=== PATIENT | female | born 1990 | race Caucasian/White ===

== ENCOUNTER 2020-09-04 13:16 | Emergency (ER) | payer MEDICARE, OTHER ==
[2020-09-04] MEDS ORDERED: Sodium Chloride 0.9% 1000 ML 1,000 ML IV STA ×2 (14:31→16:02)
[2020-09-04] MEDS ORDERED: TORAdol 30 mg Injection IV ONE (14:31)
[2020-09-04] MEDS ORDERED: Sodium Chloride 0.9% 1000 ML 1,000 ML ONE ×2 (14:33→16:03)
[2020-09-04] MEDS ORDERED: TORAdol 30 mg Injection ONE (14:33)
[2020-09-04] MEDS ORDERED: Zofran 4 MG/2 ML VIAL IV ONE (16:01)
[2020-09-04] MEDS ORDERED: SUBLIMAZE 100 MCG/2 ML IV ONE (16:01)
[2020-09-04] MEDS ORDERED: Zofran 4 MG/2 ML VIAL ONE (16:03)
[2020-09-04] MEDS ORDERED: SUBLIMAZE 100 MCG/2 ML ONE (16:03)
[2020-09-04 16:15] VITALS: BP 108/51; PULSE 77; O2SAT 96
--- NOTE | 2020-09-04 17:43 | ERPHSYRPT ---
- History of Present Illness Historian: patient Exam Limitations: no limitations Patient Subjective Stated Complaint: Pt began having pain in her left flank approx 2 hours ago, N&V Triage Nursing Assessment: Pt was brought to the ER by her , hypotensive, rates pain 8/10, hx of kidney stones, N&V, chills and then sweats Physician History: 30 yo wf w L flank pain x 2 hours which pt states is a 10 and feels like a kidney stone. She has had N/V but denies dysuria/hematuria/fever/. Pt is currently on her period. Timing/Duration: today Activities at Onset: rest Quality: aching, sharpness Abdominal Pain Onset Location: flank (L flank) Pain Radiation: no radiation Severity of Pain-Max: severe Severity of Pain-Current: severe Modifying Factors: Improves With: nothing Associated Symptoms: nausea, vomiting, No back, No chest pain, No diaphoresis, No diarrhea, No fever/chills, No fatigue, No headache, No heartburn, No loss of appetite, No neck pain, No rash, No shortness of breath, No syncope, No weakness Previous symptoms: same symptoms as today Allergies/Adverse Reactions: bee venom protein (honey bee) Allergy (Verified 09/04/20 13:56) Penicillins Allergy (Verified 09/04/20 13:56) tomato Allergy (Verified 09/04/20 13:56) Travel Risk - International Travel Have you traveled outside of the country in past 3 weeks: No - Coronavirus Screening Are you exhibiting any of the following symptoms?: No Close contact with a COVID-19 positive Pt in past 14-21 Days: No - Vaccine Status Have you recieved a Covid-19 vaccination: Yes 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 - Vaccination Dates Date of 2cond Vaccination (if applicable): 05/2020 - Review of Systems Constitutional: No Symptoms Eyes: No Symptoms Ears, Nose, & Throat: No Symptoms Respiratory: No Symptoms Cardiac: No Symptoms Abdominal/Gastrointestinal: No Symptoms, Nausea, Vomiting Genitourinary Symptoms: No Symptoms, Flank Pain Musculoskeletal: No Symptoms Skin: No Symptoms Neurological: No Symptoms Psychological: No Symptoms Endocrine: No Symptoms Hematologic/Lymphatic: No Symptoms Immunological/Allergic: No Symptoms - Past Medical History Pertinent Past Medical History: No - Past Surgical History Past Surgical History: Yes Gastrointestinal: Cholecystectomy Other Surgical History: kidney stones removed - Social History Smoking Status: Current every day smoker Exposure to second hand smoke: Yes Drug Use: none Patient Lives Alone: No Significant Family History: no pertinent family hx - Female History Hx Last Menstrual Period: 09/02/2020 Hx Now: No - Nursing Vital Signs Nursing Vital Signs: Initial Vital Signs Temperature 96.3 F 09/04/20 13:48 Pulse Rate 68 09/04/20 13:48 Blood Pressure 85/74 09/04/20 13:48 O2 Sat by Pulse Oximetry 100 09/04/20 13:48 Pain Scale Pain Intensity 4 Mildly hypotensive - Physical Exam General Appearance: mild distress (Due to pain) Eye Exam: PERRL/EOMI, eyes nml inspection Ears, Nose, Throat Exam: normal ENT inspection, TMs normal, pharynx normal, moist mucous membranes Neck Exam: normal inspection, non-tender, supple, full range of motion, No meningismus, No mass, No Brudzinski, No Kernig's Respiratory Exam: normal breath sounds, lungs clear, airway intact Cardiovascular Exam: regular rate/rhythm, normal heart sounds, normal peripheral pulses, No murmur Gastrointestinal/Abdomen Exam: soft, normal bowel sounds, No tenderness Back Exam: normal inspection, CVA tenderness (L) Extremity Exam: normal inspection, normal range of motion Neurologic Exam: alert, oriented x 3, cooperative, physical laboratory assistant II-XII nml as tested, normal mood/affect, nml cerebellar function, sensation nml Skin Exam: normal color Lymphatic Exam: No adenopathy SpO2 Interpretation: normal SpO2: 96 O2 Delivery: Room Air - Course Nursing assessment & vital signs reviewed: Yes - CT Exams Abdomen/Pelvis CT Interpretation: Tele-radiologist Report (3.5 mm distal L ureteral stone w minimal hydronephrosis/2mm RLL nodule) Ordered Tests: Active Orders 24 hr Category Date Time Status ABDOMEN AND PELVIS W/0 CONTRAS [CT] Stat Exams 09/04/20 14:44 Completed CULTURE,URINE Stat Lab 09/04/20 17:38 Received HCG,QUALITATIVE URINE Stat Lab 09/04/20 17:42 Completed UA W/RFX UR CULTURE Stat Lab 09/04/20 17:38 Completed Urine Triage Profile Stat Lab 09/04/20 17:42 Completed Medication Summary Discontinued Medications Generic Name Dose Route Start Last Admin Trade Name Freq PRN Reason Stop Dose Admin Fentanyl Citrate 100 mcg 09/04/20 16:01 09/04/20 16:04 Sublimaze 100 Mcg/2 Ml IV 09/04/20 16:02 100 mcg STAT ONE Administration Fentanyl Citrate Confirm 09/04/20 16:03 Sublimaze 100 Mcg/2 Ml Administered 09/04/20 16:04 Dose 100 mcg .ROUTE .STK-MED ONE Sodium Chloride 1,000 mls @ 999 mls/hr 09/04/20 14:31 09/04/20 16:01 Sodium Chloride 0.9% 1000 Ml IV 09/04/20 15:31 Infused .Q1H1M STA Infusion Sodium Chloride Confirm 09/04/20 14:33 Sodium Chloride 0.9% 1000 Ml Administered 09/04/20 14:34 Dose 1,000 mls @ ud .ROUTE .STK-MED ONE Sodium Chloride 1,000 mls @ 999 mls/hr 09/04/20 16:02 09/04/20 17:49 Sodium Chloride 0.9% 1000 Ml IV 09/04/20 17:02 Infused .Q1H1M STA Infusion Sodium Chloride Confirm 09/04/20 16:03 Sodium Chloride 0.9% 1000 Ml Administered 09/04/20 16:04 Dose 1,000 mls @ ud .ROUTE .STK-MED ONE Ceftriaxone Sodium/Dextrose 1 g in 50 mls @ 100 mls/hr 09/04/20 18:03 09/04/20 18:13 Rocephin 1 Gm-D5w 50 Ml Bag IV 09/04/20 18:32 100 ml/hr STAT STA 100 mls/hr Administration Ceftriaxone Sodium/Dextrose Confirm 09/04/20 18:11 Rocephin 1 Gm-D5w 50 Ml Bag Administered 09/04/20 18:12 Dose 1 g in 50 mls @ ud IV .STK-MED ONE Ketorolac Tromethamine 30 mg 09/04/20 14:31 09/04/20 14:34 Toradol 30 Mg Injection IV 09/04/20 14:32 30 mg STAT ONE Administration Ketorolac Tromethamine Confirm 09/04/20 14:33 Toradol 30 Mg Injection Administered 09/04/20 14:34 Dose 30 mg .ROUTE .STK-MED ONE Ondansetron HCl 4 mg 09/04/20 16:01 09/04/20 16:05 Zofran 4 Mg/2 Ml Vial IV 09/04/20 16:02 4 mg STAT ONE Administration Ondansetron HCl Confirm 09/04/20 16:03 Zofran 4 Mg/2 Ml Vial Administered 09/04/20 16:04 Dose 4 mg .ROUTE .STK-MED ONE Lab/Rad Data: Laboratory Results 09/04/20 09/04/20 09/04/20 Range/Units 17:42 17:42 17:38 Urine Color YELLOW (YELLOW) Urine Appearance CLOUDY (CLEAR) Urine pH 6.0 (5-6) Ur Specific [place] 1.016 (1.005-1.025) Urine Protein 30 (Negative) Urine Ketones TRACE (NEGATIVE) Urine Blood LARGE (0-5) Bandar/ul Urine Nitrite NEGATIVE (NEGATIVE) Urine Bilirubin NEGATIVE (NEGATIVE) Urine Urobilinogen NEGATIVE (0-1) mg/dL Ur Leukocyte Esterase NEGATIVE (NEGATIVE) Urine WBC (Auto) 11-15 (0-5) /HPF Urine RBC (Auto) >101 (0-2) /HPF U Epithel Cells (Auto) RARE (FEW) /HPF Urine Bacteria (Auto) NONE (NEGATIVE) /HPF Urine Mucus (Auto) MANY (NEGATIVE) /HPF Urine Culture Reflexed YES (NO) Urine Glucose NEGATIVE (NEGATIVE) mg/dL Urine HCG, Qual NEGATIVE (Negative) Urine Opiates Level NEGATIVE (NEGATIVE) Ur Methadone NEGATIVE (NEGATIVE) Urine Barbiturates NEGATIVE (NEGATIVE) Ur Phencyclidine (PCP) NEGATIVE (NEGATIVE) Urine Amphetamine POSITIVE (NEGATIVE) U Benzodiazepine Level NEGATIVE (NEGATIVE) Urine Cocaine NEGATIVE (NEGATIVE) Urine Marijuana (THC) POSITIVE (NEGATIVE) - Progress Progress: improved Progress Note: 09/04/20 17:44 30mg IV Toradol w improvement in pain Pain returned. so pt given 100umg Iv Fentanyl/4mg IV Zofran w improvement in pain 2L NS bolus to produce UA. 09/04/20 18:05 1gm IV Rocephin 09/04/20 20:03 Pt advised about lung nodule 09/04/20 20:04 UDS + for amphetamine/THC Counseled pt/family regarding: lab results, diagnosis, need for follow-up, rad results - Departure Departure Disposition: Home Clinical Impression: Ureterolithiasis, UTI (urinary tract infection) Condition: Stable Critical Care Time: No Referrals: Provider,Unknown [Primary Care Provider] - Instructions: Kidney Stones (DC), Urinary Tract Infection, Adult (DC) Additional Instructions: Strain all urine Pain meds as needed Start Bactrim twice a day for 5 days Follow up with your family MD Return to ER for increasing pain or temperature greater than 100.5 Prescriptions: Hydrocodone/Acetaminophen [Hydrocodone-Acetamin 5-325 mg] 1 each PO Q4HPRN PRN #6 tablet MDD 4 tabs PRN Reason: Pain Sulfamethoxazole/Trimethoprim [Bactrim Ds Tablet] 1 each PO BID 5 Days #10 tablet
[2020-09-04 17:50] LABS: Appearance CLOUDY (CLEAR); Bilirubin NEGATIVE (NEGATIVE); Blood LARGE Ery/ul (0-5); Epithelial Cells RARE /HPF (FEW); Glucose NEGATIVE (NEGATIVE); Ketones TRACE (NEGATIVE); Leukocyte Esterase NEGATIVE (NEGATIVE); Mucus MANY /HPF (NEGATIVE); Nitrite NEGATIVE (NEGATIVE); Protein,Urine Dip 30 (Negative); Specific Gravity 1.016 (1.005-1.025); Urobilinogen NEGATIVE mg/dL (0-1)
[2020-09-04 17:51] LABS: RBC >101 /HPF (0-2)
[2020-09-04] MEDS ORDERED: ROCEPHIN 1 Gm-D5w 50 ml Bag** 1 G/50 ML IVPB IV STA (18:03)
[2020-09-04 18:09] LABS: Barbiturate,Urine NEGATIVE (NEGATIVE); Benzodiazepine,Urine NEGATIVE (NEGATIVE); Cocaine,Urine NEGATIVE (NEGATIVE); Methadone,Urine NEGATIVE (NEGATIVE); Opiate,Urine NEGATIVE (NEGATIVE); PCP,Urine NEGATIVE (NEGATIVE); THC,Urine POSITIVE (NEGATIVE)
[2020-09-04] MEDS ORDERED: ROCEPHIN 1 Gm-D5w 50 ml Bag** 1 G/50 ML IVPB IV ONE (18:11)
[2020-09-04 18:30] LABS: Amphetamine,Urine POSITIVE (NEGATIVE)
--- NOTE | 2020-09-04 19:51 | XRAY ---
Indication: Left flank pain. History kidney stones. Multiple contiguous images obtained through the abdomen and pelvis without contrast. Comparison: None. Lung bases demonstrates minimal bibasilar dependent atelectasis and tiny right base cause for granuloma. No infiltrate or effusion. Heart not enlarged. Noncontrasted stomach and bowel loops appear nonobstructed. Normal appendix. Previous cholecystectomy. No free fluid/air. 3-4 mm distal left ureter calculus, approximately S2 level. Proximal left ureter minimally prominent along with minimal hydronephrosis and mild renal edema consistent with partial obstructive uropathy. Additional 4 mm left renal calculus and punctate right renal calculus. Remaining liver, pancreas, spleen, adrenal glands, kidneys, ureters, bladder, uterus, and aorta are unremarkable for noncontrast exam. Osseous structures intact. Impression: 1. 3-4 mm distal left ureter calculus producing partial obstructive uropathy as detailed. Additional bilateral renal micro-calculus. 2. Remaining CT abdomen/pelvis without contrast exam is negative. Comment: Preliminary interpretation was made by [facility]. No critical discrepancy.
== END 2020-09-04 18:38 | disposition home or self-care (01) ==
LOC: ED 13:16
DX: N20.1 Calculus of ureter (principal); N39.0 Urinary tract infection, site not specified; R10.9 Unspecified abdominal pain; R11.2 Nausea with vomiting, unspecified
CPT/HCPCS: 36000; 74176; 80307; 81001; 84703; 87077; 87086; 87186; 96360; 96361; 96365; 96374; 96375; 99284; J0696; J1885; J2405; J3010

== ENCOUNTER 2020-09-11 04:08 | Emergency (ER) | payer OTHER ==
[2020-09-11] MEDS ORDERED: Zofran 4 MG/2 ML VIAL IV ONE (04:45)
[2020-09-11] MEDS ORDERED: TORAdol 30 mg Injection IV ONE (04:45)
[2020-09-11] MEDS ORDERED: Sodium Chloride 0.9% 1000 ML 1,000 ML IV STA (04:45)
[2020-09-11] MEDS ORDERED: Hydromorphone 1 mg/ml Injection IV ONE ×2 (04:47→06:13)
[2020-09-11] MEDS ORDERED: Zofran 4 MG/2 ML VIAL ONE (04:54)
[2020-09-11] MEDS ORDERED: TORAdol 30 mg Injection ONE (04:55)
[2020-09-11] MEDS ORDERED: Sodium Chloride 0.9% 1000 ML 1,000 ML ONE (04:55)
[2020-09-11] MEDS ORDERED: Hydromorphone 1 mg/ml Injection ONE ×2 (04:55→06:14)
[2020-09-11 04:56] LABS: Absolute Neutrophil Ct (ANC) 9.02 (1.4-6.9); BASOPHIL % 0.5 % (0.0-0.4); Basophil (Absolute #) 0.06 (0-0.4); Eosinophil (Absolute #) 0.52 (0-0.5); Hematocrit 47.2 % (35-47); Hemoglobin 16.1 gm/dl (12.0-16.0); Lymphocytes % 19.4 % (24.0-44.0); Mean Cell Volume 85.8 fl (78-100); Mean Corpuscular Hemoglobin 29.3 pg (26-32); Mean Corpuscular Hgb Concent. 34.1 g/dl (32-36); Mean Platelet Volume 9.8 fl (7.5-11.0); Monocyte (Absolute #) 0.79 (0.0-1.3); Monocytes % 6.1 % (0.0-12.0); Platelet Count 280 K/mm3 (150-450); Red Cell Distribution Width 13.2 % (11.5-14.0); White Blood Count 12.9 K/mm3 (4.0-10.5)
[2020-09-11 05:05] LABS: ALBUMIN 4.2 g/dL (3.5-5.0); ALKALINE PHOSPHATASE 84 U/L (38-126); AMYLASE 47 U/L (30-110); ANION GAP 11.8 MEQ/L (5-15); BILIRUBIN,TOTAL < 0.10 mg/dL (0.2-1.3); BLOOD UREA NITROGEN 16 mg/dL (7-17); CHLORIDE 103 mmol/L (98-107); Calcium 9.4 mg/dL (8.4-10.2); Carbon Dioxide 26 mmol/L (22-30); Creatinine 1 1.17 mg/dL (0.52-1.04); EST GLOMERULAR FILTRATION RATE 57.3 ML/MIN; Glucose 104 mg/dL (74-106); LIPASE 174 U/L (23-300); Potassium 3.6 mmol/L (3.5-5.1); SGOT/AST 27 U/L (14-36); SGPT/ALT 22 U/L (0-35); SODIUM 137 mmol/L (137-145); Total Protein 6.7 g/dL (6.3-8.2)
--- NOTE | 2020-09-11 05:36 | ERPHSYRPT ---
- History of Present Illness Time Seen by Provider: 09/11/20 04:45 Historian: patient Patient Subjective Stated Complaint: Patient states " I am having severe back pain that radiates into my left side/groin and I feel it in my bladder." Triage Nursing Assessment: Patient arrived to ED and ambulated back to room with steady gait. Patient A/O times 4. Patient arrived crying and showing S/S of anxiety. Patient states she was just recently in ER on 09/04/20 for possible kidn ey stones and she stated that she was DX with UTI and she was given 3 different ATB and [place] in which she states she can't take because they make her sick. Patient stated she was also DX with kidney stone on 09/04/20 and that she has been straining her urine and she has not passed and that she has had to have surgery before to have removed. Patient states she has attempted to contact her urologist but she has left and the MD that took over isn't accepting new patient's yet. + BS times 4 quads. ABD large, obese, and non-distended. Patient with crying out when left side of ABD/flank palpitated. Patient states most of pain is in back. Patient denies any trauma or injury to ABD or back. Attempted to collect urine and patient told RN she cannot pee and she has a hard peeing. No dependent edema. Patient denies any loose stools. Patient stated she continues with N/V. Patient stated she dry heaved all the way to hospital. Patient stated she had a rash a day after she left hospital on 09/05/20 but not sure what it is from. RN upon visualization no rash noted. Physician History: This is a 30-year-old overweight white female who has a known left ureteral calculus measured approximately 3 to 4 mm with minimal hydroureter and minimal hydronephrosis and bilateral microcalculi within the kidneys diagnosed on 09/04/2020 CAT scan of the abdomen pelvis. Patient has history of recurrent current ureteral calculi in the past. Since 09/04/2020, the patient has continued pain in the left flank. She has been too nauseated to take her antibiotic medication and the [place] pain pills. She returns today because of the pain and nausea symptoms. Timing/Duration: day(s) (A few days) Activities at Onset: none Abdominal Pain Onset Location: flank (Left) Pain Radiation: groin (Left groin) Severity of Pain-Max: moderate Severity of Pain-Current: moderate Modifying Factors: Improves With: nothing Associated Symptoms: nausea Previous symptoms: same symptoms as today, recently seen, recently treated Allergies/Adverse Reactions: bee venom protein (honey bee) Allergy (Verified 09/11/20 04:24) Penicillins Allergy (Verified 09/11/20 04:24) tomato Allergy (Verified 09/11/20 04:24) Hx Tetanus, Diphtheria Vaccination/Date Given: No Hx Influenza Vaccination/Date Given: No Hx Pneumococcal Vaccination/Date Given: No Immunizations Up to Date: Yes Travel Risk - International Travel Have you traveled outside of the country in past 3 weeks: No If Yes, where;: N - Coronavirus Screening Close contact with a COVID-19 positive Pt in past 14-21 Days: No - Vaccine Status Have you recieved a Covid-19 vaccination: Yes Bartender Server: Moderna - Vaccination Dates Date of 2cond Vaccination (if applicable): 07/05/20 - Review of Systems Constitutional: No Symptoms Eyes: No Symptoms Ears, Nose, & Throat: No Symptoms Respiratory: No Symptoms Cardiac: No Symptoms Abdominal/Gastrointestinal: Nausea Genitourinary Symptoms: Flank Pain (Left) Musculoskeletal: No Symptoms Skin: No Symptoms Neurological: No Symptoms Psychological: No Symptoms Endocrine: No Symptoms Hematologic/Lymphatic: No Symptoms Immunological/Allergic: No Symptoms All Other Systems: Reviewed and Negative - Past Medical History Pertinent Past Medical History: No Neurological History: No Pertinent History ENT History: No Pertinent History Cardiac History: No Pertinent History Respiratory History: No Pertinent History Endocrine Medical History: No Pertinent History Musculoskeletal History: No Pertinent History GI Medical History: No Pertinent History History: Other Psycho-Social History: No Pertinent History Female Reproductive Disorders: No Pertinent History - Past Surgical History Past Surgical History: Yes Neuro Surgical History: No Pertinent History Cardiac: No Pertinent History Respiratory: No Pertinent History Gastrointestinal: Cholecystectomy Genitourinary: No Pertinent History Musculoskeletal: No Pertinent History Female Surgical History: No Pertinent History Other Surgical History: HX Kidney Stones removed - Social History Smoking Status: Current every day smoker How long have you smoked: 15 years Exposure to second hand smoke: Yes Drug Use: none Patient Lives Alone: No Significant Family History: no pertinent family hx - Female History Hx Last Menstrual Period: 09/04/20 Hx Now: No - Nursing Vital Signs Nursing Vital Signs: Initial Vital Signs Temperature 97.3 F 09/11/20 04:22 Pulse Rate 66 09/11/20 04:22 Respiratory Rate 22 09/11/20 04:22 Blood Pressure 105/84 09/11/20 04:22 O2 Sat by Pulse Oximetry 97 09/11/20 04:22 Pain Scale Pain Intensity [Left Back] 7 Pain Intensity 7 - Physical Exam General Appearance: no apparent distress, alert, anxiety Eye Exam: PERRL/EOMI, eyes nml inspection Ears, Nose, Throat Exam: normal ENT inspection, moist mucous membranes Neck Exam: normal inspection, non-tender, supple, full range of motion Respiratory Exam: normal breath sounds, lungs clear, airway intact, No chest tenderness, No respiratory distress Cardiovascular Exam: regular rate/rhythm, normal heart sounds, normal peripheral pulses Gastrointestinal/Abdomen Exam: soft, normal bowel sounds, No tenderness Pelvic Exam: not done Rectal Exam: not done Back Exam: normal inspection, normal range of motion, CVA tenderness (Left), No vertebral tenderness Extremity Exam: normal inspection, normal range of motion, pelvis stable Neurologic Exam: alert, oriented x 3, cooperative, child care attendant II-XII nml as tested, normal mood/affect, nml cerebellar function, nml station & gait, sensation nml Skin Exam: normal color, warm, dry Lymphatic Exam: No adenopathy SpO2 Interpretation: normal SpO2: 98 O2 Delivery: Room Air - Course Nursing assessment & vital signs reviewed: Yes Ordered Tests: Active Orders 24 hr Category Date Time Status IV Insertion STAT Care 09/11/20 04:48 Active ABDOMEN AND PELVIS W/0 CONTRAS [CT] Stat Exams 09/11/20 04:49 Taken AMYLASE Stat Lab 09/11/20 04:53 Completed CBC W DIFF Stat Lab 09/11/20 04:53 Completed CMP Stat Lab 09/11/20 04:53 Completed HCG QUALITATIVE,SERUM Stat Lab 09/11/20 04:53 Completed LIPASE Stat Lab 09/11/20 04:53 Completed UA W/RFX UR CULTURE Stat Lab 09/11/20 06:24 Ordered Medication Summary Generic Name Dose Route Start Last Admin Trade Name Freq PRN Reason Stop Dose Admin Sodium Chloride 500 mls @ 500 mls/hr 09/11/20 06:21 09/11/20 06:24 Sodium Chloride 0.9% 500 Ml IV 09/11/20 07:20 500 mls/hr .Q1H ONE Administration Discontinued Medications Generic Name Dose Route Start Last Admin Trade Name Goldyq PRN Reason Stop Dose Admin Hydromorphone HCl 1 mg 09/11/20 04:47 09/11/20 04:58 Hydromorphone 1 Mg/Ml Injection IV 09/11/20 04:48 1 mg STAT ONE Administration Hydromorphone HCl Confirm 09/11/20 04:55 Hydromorphone 1 Mg/Ml Injection Administered 09/11/20 04:56 Dose 1 mg .ROUTE .STK-MED ONE Hydromorphone HCl 1 mg 09/11/20 06:13 09/11/20 06:16 Hydromorphone 1 Mg/Ml Injection IV 09/11/20 06:14 1 mg STAT ONE Administration Hydromorphone HCl Confirm 09/11/20 06:14 Hydromorphone 1 Mg/Ml Injection Administered 09/11/20 06:15 Dose 1 mg .ROUTE .STK-MED ONE Sodium Chloride 1,000 mls @ 999 mls/hr 09/11/20 04:45 09/11/20 06:34 Sodium Chloride 0.9% 1000 Ml IV 09/11/20 05:45 Infused .Q1H1M STA Infusion Sodium Chloride Confirm 09/11/20 04:55 Sodium Chloride 0.9% 1000 Ml Administered 09/11/20 04:56 Dose 1,000 mls @ ud .ROUTE .STK-MED ONE Sodium Chloride Confirm 09/11/20 06:22 Sodium Chloride 0.9% 500 Ml Administered 09/11/20 06:23 Dose 500 mls @ ud IV .STK-MED ONE Ketorolac Tromethamine 30 mg 09/11/20 04:45 09/11/20 04:58 Toradol 30 Mg Injection IV 09/11/20 04:46 30 mg STAT ONE Administration Ketorolac Tromethamine Confirm 09/11/20 04:55 Toradol 30 Mg Injection Administered 09/11/20 04:56 Dose 30 mg .ROUTE .STK-MED ONE Ondansetron HCl 4 mg 09/11/20 04:45 09/11/20 04:58 Zofran 4 Mg/2 Ml Vial IV 09/11/20 04:46 4 mg STAT ONE Administration Ondansetron HCl Confirm 09/11/20 04:54 Zofran 4 Mg/2 Ml Vial Administered 09/11/20 04:55 Dose 4 mg .ROUTE .STK-MED ONE Tamsulosin HCl 0.4 mg 09/11/20 06:45 09/11/20 06:46 Flomax 0.4 Mg PO 09/11/20 06:46 0.4 mg STAT ONE Administration Tamsulosin HCl Confirm 09/11/20 06:45 Flomax 0.4 Mg Administered 09/11/20 06:46 Dose 0.4 mg .ROUTE .STK-MED ONE Lab/Rad Data: Laboratory Result Diagrams 09/11/20 04:53 09/11/20 04:53 Laboratory Results 09/11/20 09/11/20 09/11/20 Range/Units 04:53 04:53 04:53 WBC 12.9 H (4.0-10.5) K/mm3 RBC 5.50 H (4.1-5.4) M/mm3 Hgb 16.1 H (12.0-16.0) gm/dl Hct 47.2 H (35-47) % MCV 85.8 (78-100) fl MCH 29.3 (26-32) pg MCHC 34.1 (32-36) g/dl RDW 13.2 (11.5-14.0) % Plt Count 280 (150-450) K/mm3 MPV 9.8 (7.5-11.0) fl Gran % 70.0 H (36.0-66.0) % Eos # (Auto) 0.52 H (0-0.5) Absolute Lymphs (auto) 2.50 (1.0-4.6) Absolute Monos (auto) 0.79 (0.0-1.3) Lymphocytes % 19.4 L (24.0-44.0) % Monocytes % 6.1 (0.0-12.0) % Eosinophils % 4.0 (0.00-5.0) % Basophils % 0.5 (0.0-0.4) % Absolute Granulocytes 9.02 H (1.4-6.9) Basophils # 0.06 (0-0.4) Sodium 137 (137-145) mmol/L Potassium 3.6 (3.5-5.1) mmol/L Chloride 103 (98-107) mmol/L Carbon Dioxide 26 (22-30) mmol/L Anion Gap 11.8 (5-15) MEQ/L BUN 16 (7-17) mg/dL Creatinine 1.17 H (0.52-1.04) mg/dL Estimated GFR 57.3 ML/MIN Glucose 104 (74-106) mg/dL Calcium 9.4 (8.4-10.2) mg/dL Total Bilirubin < 0.10 L (0.2-1.3) mg/dL AST 27 (14-36) U/L ALT 22 (0-35) U/L Alkaline Phosphatase 84 (38-126) U/L Serum Total Protein 6.7 (6.3-8.2) g/dL Albumin 4.2 (3.5-5.0) g/dL Amylase 47 (30-110) U/L Lipase 174 (23-300) U/L Serum , Qual NEGATIVE (Negative) - Progress Progress: improved, pain not gone completely, re-examined Counseled pt/family regarding: lab results, diagnosis, need for follow-up, rad results - Departure Departure Disposition: Home Clinical Impression: Left ureteral calculus Condition: Stable Critical Care Time: No Referrals: Provider,Unknown [Primary Care Provider] - Additional Instructions: Drink plenty of fluids. Take ibuprofen 600 mg orally with food 3 times a day for the next 5 days. Follow-up with your urologist for further management. Hollis e your [place] and antibiotic as prescribed. Prescriptions: Ondansetron ODT 4 MG [Zofran Odt 4 mg] 4 mg PO Q6H PRN PRN #10 tab.rapdis PRN Reason: Vomiting Tamsulosin HCl 0.4 mg [Flomax 0.4 MG] 0.4 mg PO DAILY #7 cap
[2020-09-11] MEDS ORDERED: Sodium Chloride 0.9% 500 ML 500 ML IV ONE ×2 (06:21→06:22)
[2020-09-11] MEDS ORDERED: Flomax 0.4 MG PO ONE (06:45)
[2020-09-11] MEDS ORDERED: Flomax 0.4 MG ONE (06:45)
[2020-09-11 07:07] LABS: Appearance CLEAR (CLEAR); Bacteria RARE /HPF (NEGATIVE); Bilirubin NEGATIVE (NEGATIVE); Blood LARGE Ery/ul (0-5); Glucose NEGATIVE (NEGATIVE); Ketones NEGATIVE (NEGATIVE); Leukocyte Esterase NEGATIVE (NEGATIVE); Mucus SLIGHT /HPF (NEGATIVE); Nitrite NEGATIVE (NEGATIVE); Protein,Urine Dip NEGATIVE (Negative); Urobilinogen NEGATIVE mg/dL (0-1)
[2020-09-11 07:08] LABS: RBC >101 /HPF (0-2)
[2020-09-11 07:56] VITALS: BP 117/81; PULSE 76; O2SAT 97
--- NOTE | 2020-09-11 19:56 | XRAY ---
Indication: Left flank pain. Difficulty urinating. History renal stone. Multiple contiguous axial images obtained through the abdomen and pelvis without contrast using renal stone protocol. Comparison: September 04, 2020. Lung bases again demonstrates bilateral dependent atelectasis and tiny right base calcified granuloma. Heart not enlarged. Previous distal left ureter calculus has propagated distally now seen at the level of the UVJ today measuring 5-6 mm. Again mild left renal edema, mild hydronephrosis, and mild left ureter prominence consistent with partial obstructive uropathy. Stable bilateral punctate micro-calculus. Remaining liver, pancreas, spleen, adrenal glands, kidneys, ureters, bladder, uterus, and aorta are unremarkable for noncontrast exam. Impression: 5-6 mm left UVJ calculus again producing obstructive uropathy. Stable bilateral renal micro-calculus. Comment: Preliminary interpretation was made by [facility]. No critical discrepancy.
== END 2020-09-11 07:57 | disposition home or self-care (01) ==
LOC: ED 04:08
DX: N20.1 Calculus of ureter (principal); Z87.442 Personal history of urinary calculi; R11.0 Nausea
CPT/HCPCS: 36000; 36415; 74176; 80053; 81001; 81025; 82150; 83690; 85025; 96360; 96374; 96375; 96376; 99284; J1170; J1885; J2405; A9270-GY

== ENCOUNTER 2021-09-16 17:12 | Emergency (ER) | payer OTHER ==
[2021-09-16] MEDS ORDERED: TORAdol 30 mg Injection IV ONE (18:21)
[2021-09-16] MEDS ORDERED: Zofran 4 MG/2 ML VIAL IV ONE ×2 (18:21→20:22)
[2021-09-16] MEDS ORDERED: Sodium Chloride 0.9% 1000 ML 1,000 ML IV STA (18:22)
[2021-09-16 19:05] LABS: Absolute Neutrophil Ct (ANC) 10.53 x10^3/uL (1.4-6.9); Basophil (Absolute #) 0.05 x10^3/uL (0-0.4); Eosinophil % 0.3 % (0.00-5.0); Eosinophil (Absolute #) 0.04 x10^3/uL (0-0.5); Hematocrit 45.7 % (35-47); Hemoglobin 15.5 g/dL (12.0-16.0); Lymphocyte (Absolute #) 1.99 x10^3/uL (1.0-4.6); Lymphocytes % 15.2 % (24.0-44.0); Mean Cell Volume 87.7 fL (78-100); Mean Corpuscular Hemoglobin 29.8 pg (26-32); Mean Corpuscular Hgb Concent. 33.9 g/dL (32-36); Mean Platelet Volume 9.4 fL (7.5-11.0); Monocyte (Absolute #) 0.45 x10^3/uL (0.0-1.3); Monocytes % 3.4 % (0.0-12.0); Neutrophil % 80.4 % (36.0-66.0); Platelet Count 304 x10^3/uL (150-450); Red Blood Count 5.21 x10^6/uL (4.1-5.4); Red Cell Distribution Width 12.2 % (11.5-14.0); White Blood Count 13.1 x10^3/uL (4.0-10.5)
--- NOTE | 2021-09-16 19:07 | ERPHSYRPT ---
- History of Present Illness Time Seen by Provider: 09/16/21 17:55 Historian: patient, police Exam Limitations: clinical condition Patient Subjective Stated Complaint: PT HERE FOR ABD PAIN FOR 3 DAYS NOW, SHE WAS ARRESTED TODAY AND IS IN CUSTODY, SHE ADMITS TO USING METH ON SUNDAY. Triage Nursing Assessment: PT ALERT, CRYING, RESTLESS IN BED, SKIN W/D/P. FACE MASK IN PLACE, ABD SOFT, NO EDEMA, IS CUFFED TO BED, Physician History: This is a 31-year-old white female who was brought into the emergency department from the senior care. Patient was arrested today and began having complaints of vomiting and severe abdominal pain. Therefore, she was brought into the emergency department for evaluation and management. Patient has a history of recurrent urinary tract infections as well as ureteral calculi. 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 However, she stated in the last 2 days she has been on a methamphetamine binge. Patient denies chest pain. She denies shortness of breath. She has generalized abdominal pain and bilateral flank pain. Patient is not suicidal or homicidal. Timing/Duration: today Quality: pressure Abdominal Pain Onset Location: generalized abdomen Pain Radiation: no radiation Severity of Pain-Max: moderate Severity of Pain-Current: mild (To moderate) Modifying Factors: Improves With: vomiting Associated Symptoms: nausea Previous symptoms: no prior history Allergies/Adverse Reactions: bee venom protein (honey bee) Allergy (Verified 09/16/21 17:36) Penicillins Allergy (Verified 09/16/21 17:36) tomato Allergy (Verified 09/16/21 17:36) Hx Tetanus, Diphtheria Vaccination/Date Given: No Hx Influenza Vaccination/Date Given: No Hx Pneumococcal Vaccination/Date Given: No Immunizations Up to Date: Yes Travel Risk - International Travel Have you traveled outside of the country in past 3 weeks: No - Coronavirus Screening Are you exhibiting any of the following symptoms?: No - Vaccine Status Have you recieved a Covid-19 vaccination: Yes Pelt Dropper: Unknown - Vaccination Dates Date of 2cond Vaccination (if applicable): 2020 Dates if Unknown: ? - Review of Systems Constitutional: No Symptoms, Other (Patient restless in bed and appears intoxicated.) Eyes: No Symptoms Ears, Nose, & Throat: No Symptoms Respiratory: No Symptoms Cardiac: No Symptoms Abdominal/Gastrointestinal: Abdominal Pain, Nausea, Vomiting, No Diarrhea, No Constipation Genitourinary Symptoms: No Symptoms Musculoskeletal: No Symptoms Skin: No Symptoms Neurological: No Symptoms Psychological: No Symptoms Endocrine: No Symptoms Hematologic/Lymphatic: No Symptoms Immunological/Allergic: No Symptoms All Other Systems: Reviewed and Negative - Past Medical History Pertinent Past Medical History: No Neurological History: No Pertinent History ENT History: No Pertinent History Cardiac History: No Pertinent History Respiratory History: No Pertinent History Endocrine Medical History: No Pertinent History Musculoskeletal History: No Pertinent History GI Medical History: No Pertinent History History: Other Psycho-Social History: Anxiety, Depression Female Reproductive Disorders: No Pertinent History Other Medical History: PTSD - Past Surgical History Past Surgical History: Yes Neuro Surgical History: No Pertinent History Cardiac: No Pertinent History Respiratory: No Pertinent History Gastrointestinal: Cholecystectomy Genitourinary: No Pertinent History Musculoskeletal: No Pertinent History Female Surgical History: No Pertinent History Other Surgical History: HX Kidney Stones removed - Social History Smoking Status: Current every day smoker How long have you smoked: 15 years Exposure to second hand smoke: Yes Drug Use: methamphetamines Patient Lives Alone: No Significant Family History: no pertinent family hx - Female History Hx Last Menstrual Period: UNSURE Hx Now: No (UNSRE) - Nursing Vital Signs Nursing Vital Signs: Initial Vital Signs Temperature 97.8 F 09/16/21 17:39 Pulse Rate 109 H 09/16/21 17:39 Respiratory Rate 18 09/16/21 17:39 Blood Pressure 140/88 09/16/21 17:39 O2 Sat by Pulse Oximetry 98 09/16/21 17:39 Pain Scale Pain Intensity 7 - Physical Exam General Appearance: no apparent distress, alert, anxiety, other (Patient is restless in bed and appears intoxicated) Eye Exam: PERRL/EOMI, eyes nml inspection Ears, Nose, Throat Exam: moist mucous membranes, other (Poor dentition) Neck Exam: normal inspection, non-tender, supple, full range of motion Respiratory Exam: normal breath sounds, lungs clear, airway intact, No chest tenderness, No respiratory distress Cardiovascular Exam: tachycardia (Mild) Gastrointestinal/Abdomen Exam: soft, normal bowel sounds, tenderness (Mild diffuse), No rebound Pelvic Exam: not done Rectal Exam: not done Back Exam: normal inspection, normal range of motion, No CVA tenderness, No vertebral tenderness Extremity Exam: normal inspection, normal range of motion, pelvis stable Neurologic Exam: alert, oriented x 3, cooperative, supervisor anodizing II-XII nml as tested Skin Exam: normal color, warm, dry Lymphatic Exam: No adenopathy SpO2 Interpretation: normal SpO2: 98 O2 Delivery: Room Air - Course Nursing assessment & vital signs reviewed: Yes Ordered Tests: Active Orders 24 hr Category Date Time Status IV Insertion STAT Care 09/16/21 18:21 Active ABDOMEN AND PELVIS W/0 CONTRAS [CT] Stat Exams 09/16/21 18:21 Completed AMYLASE Stat Lab 09/16/21 18:50 Completed CBC W DIFF Stat Lab 09/16/21 18:50 Completed CMP Stat Lab 09/16/21 18:50 Completed ETHYL ALCOHOL Stat Lab 09/16/21 18:50 Completed HCG QUALITATIVE,SERUM Stat Lab 09/16/21 18:50 Completed LIPASE Stat Lab 09/16/21 18:50 Completed Lactic Acid Stat Lab 09/16/21 18:43 Completed UA W/RFX CULTURE Stat Lab 09/16/21 19:22 Completed Urine Triage Profile Stat Lab 09/16/21 19:22 Completed Medication Summary Discontinued Medications Generic Name Dose Route Start Last Admin Trade Name Goldyq PRN Reason Stop Dose Admin Sodium Chloride 1,000 mls @ 999 mls/hr 09/16/21 18:22 09/16/21 20:14 Sodium Chloride 0.9% 1000 Ml IV 09/16/21 19:22 Infused .Q1H1M STA Infusion Sodium Chloride Confirm 09/16/21 19:09 Sodium Chloride 0.9% 1000 Ml Administered 09/16/21 19:10 Dose 1,000 mls @ ud .ROUTE .STK-MED ONE Ketorolac Tromethamine 30 mg 09/16/21 18:21 09/16/21 19:16 Ketorolac Tromethamine 30 Mg/Ml Inj IV 09/16/21 18:22 30 mg STAT ONE Administration Ketorolac Tromethamine Confirm 09/16/21 19:15 Ketorolac Tromethamine 30 Mg/Ml Inj Administered 09/16/21 19:16 Dose 30 mg .ROUTE .STK-MED ONE Ondansetron HCl 4 mg 09/16/21 18:21 09/16/21 19:10 Ondansetron Hcl 4 Mg/2 Ml Vial IV 09/16/21 18:22 4 mg STAT ONE Administration Ondansetron HCl Confirm 09/16/21 19:09 Ondansetron Hcl 4 Mg/2 Ml Vial Administered 09/16/21 19:10 Dose 4 mg .ROUTE .STK-MED ONE Ondansetron HCl 4 mg 09/16/21 20:22 09/16/21 20:23 Ondansetron Hcl 4 Mg/2 Ml Vial IV 09/16/21 20:23 4 mg STAT ONE Administration Ondansetron HCl Confirm 09/16/21 20:22 Ondansetron Hcl 4 Mg/2 Ml Vial Administered 09/16/21 20:23 Dose 4 mg .ROUTE .STK-MED ONE Lab/Rad Data: Laboratory Result Diagrams 09/16/21 18:50 09/16/21 18:50 Laboratory Results 09/16/21 09/16/21 09/16/21 Range/Units 19:22 19:22 18:50 WBC (4.0-10.5) x10^3/uL RBC (4.1-5.4) x10^6/uL Hgb (12.0-16.0) g/dL Hct (35-47) % MCV (78-100) fL MCH (26-32) pg MCHC (32-36) g/dL RDW (11.5-14.0) % Plt Count (150-450) x10^3/uL MPV (7.5-11.0) fL Gran % (36.0-66.0) % Immature Gran % (Auto) (0.00-0.4) % Nucleat RBC Rel Count (0.00-0.1) % Eos # (Auto) (0-0.5) x10^3/uL Immature Gran # (Auto) (0.00-0.03) x10^3u/L Absolute Lymphs (auto) (1.0-4.6) x10^3/uL Absolute Monos (auto) (0.0-1.3) x10^3/uL Absolute Nucleated RBC (0.00-0.01) x10^3u/L Lymphocytes % (24.0-44.0) % Monocytes % (0.0-12.0) % Eosinophils % (0.00-5.0) % Basophils % (0.0-0.4) % Absolute Granulocytes (1.4-6.9) x10^3/uL Basophils # (0-0.4) x10^3/uL Sodium (137-145) mmol/L Potassium (3.5-5.1) mmol/L Chloride (98-107) mmol/L Carbon Dioxide (22-30) mmol/L Anion Gap (5-15) MEQ/L BUN (7-17) mg/dL Creatinine (0.52-1.04) mg/dL Estimated GFR ML/MIN Glucose (74-106) mg/dL Lactic Acid (0.4-2.0) Calcium (8.4-10.2) mg/dL Total Bilirubin (0.2-1.3) mg/dL AST (14-36) U/L ALT (0-35) U/L Alkaline Phosphatase (38-126) U/L Serum Total Protein (6.3-8.2) g/dL Albumin (3.5-5.0) g/dL Amylase (30-110) U/L Lipase (23-300) U/L Serum , Qual (Negative) Urinalys Dipstick Clnc MAIN LAB Urine Color YELLOW (YELLOW) Urine Appearance CLEAR (CLEAR) Urine pH 6.0 (5-6) Ur Specific [place] [employer] 1.025 (1.005-1.025) POC Urine Protein Conf NEGATIVE (Negative) Urine Ketones NEGATIVE (NEGATIVE) Urine Nitrite NEGATIVE (NEGATIVE) Urine Bilirubin NEGATIVE (NEGATIVE) Urine Urobilinogen 0.2 (0-1) mg/dL Urine Leukocytes NEGATIVE (NEGATIVE) Urine WBC (Auto) 3-5 (0-5) /HPF Urine RBC (Auto) 0-2 (0-2) /HPF U Epithel Cells (Auto) FEW (FEW) /HPF Urine Bacteria (Auto) RARE (NEGATIVE) /HPF Urine RBC TRACE-LYSED (0-5) Bandar/ul Urine Mucus (Auto) SLIGHT (NEGATIVE) /HPF Ur Culture Indicated? NO Urine Glucose NEGATIVE (NEGATIVE) mg/dL Urine Opiates Level NEGATIVE (NEGATIVE) Ur Methadone NEGATIVE (NEGATIVE) Urine Barbiturates NEGATIVE (NEGATIVE) Ur Phencyclidine (PCP) NEGATIVE (NEGATIVE) Urine Amphetamine POSITIVE (NEGATIVE) U Benzodiazepine Level NEGATIVE (NEGATIVE) Urine Cocaine NEGATIVE (NEGATIVE) Urine Marijuana (THC) POSITIVE (NEGATIVE) Ethyl Alcohol < 10 (0-10) mg/dL 07/15/22 07/15/22 07/15/22 Range/Units 18:50 18:50 18:50 WBC 13.1 H (4.0-10.5) x10^3/uL RBC 5.21 (4.1-5.4) x10^6/uL Hgb 15.5 (12.0-16.0) g/dL Hct 45.7 (35-47) % MCV 87.7 (78-100) fL MCH 29.8 (26-32) pg MCHC 33.9 (32-36) g/dL RDW 12.2 (11.5-14.0) % Plt Count 304 (150-450) x10^3/uL MPV 9.4 (7.5-11.0) fL Gran % 80.4 H (36.0-66.0) % Immature Gran % (Auto) 0.3 (0.00-0.4) % Nucleat RBC Rel Count 0.0 (0.00-0.1) % Eos # (Auto) 0.04 (0-0.5) x10^3/uL Immature Gran # (Auto) 0.04 H (0.00-0.03) x10^3u/L Absolute Lymphs (auto) 1.99 (1.0-4.6) x10^3/uL Absolute Monos (auto) 0.45 (0.0-1.3) x10^3/uL Absolute Nucleated RBC 0.00 (0.00-0.01) x10^3u/L Lymphocytes % 15.2 L (24.0-44.0) % Monocytes % 3.4 (0.0-12.0) % Eosinophils % 0.3 (0.00-5.0) % Basophils % 0.4 (0.0-0.4) % Absolute Granulocytes 10.53 H (1.4-6.9) x10^3/uL Basophils # 0.05 (0-0.4) x10^3/uL Sodium 137 (137-145) mmol/L Potassium 4.3 (3.5-5.1) mmol/L Chloride 105 (98-107) mmol/L Carbon Dioxide 26 (22-30) mmol/L Anion Gap 10.6 (5-15) MEQ/L BUN 14 (7-17) mg/dL Creatinine 0.97 (0.52-1.04) mg/dL Estimated GFR > 60.0 ML/MIN Glucose 92 (74-106) mg/dL Lactic Acid (0.4-2.0) Calcium 9.5 (8.4-10.2) mg/dL Total Bilirubin 0.50 (0.2-1.3) mg/dL AST 26 (14-36) U/L ALT 18 (0-35) U/L Alkaline Phosphatase 104 (38-126) U/L Serum Total Protein 7.5 (6.3-8.2) g/dL Albumin 4.3 (3.5-5.0) g/dL Amylase 70 (30-110) U/L Lipase 128 (23-300) U/L Serum , Qual NEGATIVE (Negative) Urinalys Dipstick Clnc Urine Color (YELLOW) Urine Appearance (CLEAR) Urine pH (5-6) Ur Specific [place] [employer] (1.005-1.025) POC Urine Protein Conf (Negative) Urine Ketones (NEGATIVE) Urine Nitrite (NEGATIVE) Urine Bilirubin (NEGATIVE) Urine Urobilinogen (0-1) mg/dL Urine Leukocytes (NEGATIVE) Urine WBC (Auto) (0-5) /HPF Urine RBC (Auto) (0-2) /HPF U Epithel Cells (Auto) (FEW) /HPF Urine Bacteria (Auto) (NEGATIVE) /HPF Urine RBC (0-5) Bandar/ul Urine Mucus (Auto) (NEGATIVE) /HPF Ur Culture Indicated? Urine Glucose (NEGATIVE) mg/dL Urine Opiates Level (NEGATIVE) Ur Methadone (NEGATIVE) Urine Barbiturates (NEGATIVE) Ur Phencyclidine (PCP) (NEGATIVE) Urine Amphetamine (NEGATIVE) U Benzodiazepine Level (NEGATIVE) Urine Cocaine (NEGATIVE) Urine Marijuana (THC) (NEGATIVE) Ethyl Alcohol (0-10) mg/dL 09/16/21 Range/Units 18:43 WBC (4.0-10.5) x10^3/uL RBC (4.1-5.4) x10^6/uL Hgb (12.0-16.0) g/dL Hct (35-47) % MCV (78-100) fL MCH (26-32) pg MCHC (32-36) g/dL RDW (11.5-14.0) % Plt Count (150-450) x10^3/uL MPV (7.5-11.0) fL Gran % (36.0-66.0) % Immature Gran % (Auto) (0.00-0.4) % Nucleat RBC Rel Count (0.00-0.1) % Eos # (Auto) (0-0.5) x10^3/uL Immature Gran # (Auto) (0.00-0.03) x10^3u/L Absolute Lymphs (auto) (1.0-4.6) x10^3/uL Absolute Monos (auto) (0.0-1.3) x10^3/uL Absolute Nucleated RBC (0.00-0.01) x10^3u/L Lymphocytes % (24.0-44.0) % Monocytes % (0.0-12.0) % Eosinophils % (0.00-5.0) % Basophils % (0.0-0.4) % Absolute Granulocytes (1.4-6.9) x10^3/uL Basophils # (0-0.4) x10^3/uL Sodium (137-145) mmol/L Potassium (3.5-5.1) mmol/L Chloride (98-107) mmol/L Carbon Dioxide (22-30) mmol/L Anion Gap (5-15) MEQ/L BUN (7-17) mg/dL Creatinine (0.52-1.04) mg/dL Estimated GFR ML/MIN Glucose (74-106) mg/dL Lactic Acid 0.8 (0.4-2.0) Calcium (8.4-10.2) mg/dL Total Bilirubin (0.2-1.3) mg/dL AST (14-36) U/L ALT (0-35) U/L Alkaline Phosphatase (38-126) U/L Serum Total Protein (6.3-8.2) g/dL Albumin (3.5-5.0) g/dL Amylase (30-110) U/L Lipase (23-300) U/L Serum , Qual (Negative) Urinalys Dipstick Clnc Urine Color (YELLOW) Urine Appearance (CLEAR) Urine pH (5-6) Ur Specific [place] [employer] (1.005-1.025) POC Urine Protein Conf (Negative) Urine Ketones (NEGATIVE) Urine Nitrite (NEGATIVE) Urine Bilirubin (NEGATIVE) Urine Urobilinogen (0-1) mg/dL Urine Leukocytes (NEGATIVE) Urine WBC (Auto) (0-5) /HPF Urine RBC (Auto) (0-2) /HPF U Epithel Cells (Auto) (FEW) /HPF Urine Bacteria (Auto) (NEGATIVE) /HPF Urine RBC (0-5) Bandar/ul Urine Mucus (Auto) (NEGATIVE) /HPF Ur Culture Indicated? Urine Glucose (NEGATIVE) mg/dL Urine Opiates Level (NEGATIVE) Ur Methadone (NEGATIVE) Urine Barbiturates (NEGATIVE) Ur Phencyclidine (PCP) (NEGATIVE) Urine Amphetamine (NEGATIVE) U Benzodiazepine Level (NEGATIVE) Urine Cocaine (NEGATIVE) Urine Marijuana (THC) (NEGATIVE) Ethyl Alcohol (0-10) mg/dL - Progress Progress: improved, re-examined Progress Note: 09/16/21 20:45 CAT scan of the abdomen pelvis shows nonobstructing left renal punctate calculu s. There is a right ovarian cyst that is 2.9 cm. The remainder of the CT of the abdomen pelvis without contrast is grossly negative. Counseled pt/family regarding: lab results, diagnosis, need for follow-up, rad results - Departure Departure Disposition: Home Clinical Impression: Right ovarian cyst, Abdominal pain Condition: Stable Critical Care Time: No Referrals: RICHIE GARRETT [Primary Care Provider] - Follow up/PCP as directed Additional Instructions: Drink plenty of clear liquids before advancing diet. Follow-up with your primary care physician for further evaluation management. Prescriptions: Ondansetron ODT 4 MG [Zofran Odt 4 mg] 4 mg PO Q6H PRN PRN #10 tablet PRN Reason: Vomiting
[2021-09-16] MEDS ORDERED: Zofran 4 MG/2 ML VIAL ONE ×2 (19:09→20:22)
[2021-09-16] MEDS ORDERED: Sodium Chloride 0.9% 1000 ML 1,000 ML ONE (19:09)
[2021-09-16 19:14] LABS: ALBUMIN 4.3 g/dL (3.5-5.0); ALKALINE PHOSPHATASE 104 U/L (38-126); AMYLASE 70 U/L (30-110); ANION GAP 10.6 MEQ/L (5-15); BLOOD UREA NITROGEN 14 mg/dL (7-17); CHLORIDE 105 mmol/L (98-107); Calcium 9.5 mg/dL (8.4-10.2); Carbon Dioxide 26 mmol/L (22-30); Creatinine 1 0.97 mg/dL (0.52-1.04); EST GLOMERULAR FILTRATION RATE > 60.0 ML/MIN; Glucose 92 mg/dL (74-106); LIPASE 128 U/L (23-300); Potassium 4.3 mmol/L (3.5-5.1); SGOT/AST 26 U/L (14-36); SGPT/ALT 18 U/L (0-35); SODIUM 137 mmol/L (137-145); Total Protein 7.5 g/dL (6.3-8.2)
[2021-09-16] MEDS ORDERED: TORAdol 30 mg Injection ONE (19:15)
[2021-09-16 20:07] LABS: Bacteria RARE /HPF (NEGATIVE); Epithelial Cells FEW /HPF (FEW); Mucus SLIGHT /HPF (NEGATIVE); RBC 0-2 /HPF (0-2)
[2021-09-16 20:08] LABS: Appearance CLEAR (CLEAR); Bilirubin NEGATIVE (NEGATIVE); Glucose NEGATIVE (NEGATIVE); Ketones NEGATIVE (NEGATIVE); Protein,Urine Dip NEGATIVE (Negative); RBC TRACE-LYSED Ery/ul (0-5); Specific Gravity 1.025 (1.005-1.025)
[2021-09-16 20:09] VITALS: BP 105/67
[2021-09-16 20:09] LABS: Nitrite NEGATIVE (NEGATIVE); Urine Cultured Indicated? NO; Urobilinogen 0.2 mg/dL (0-1)
[2021-09-16 20:10] LABS: Dipstick done @ ? MAIN LAB
[2021-09-16 20:18] LABS: Barbiturate,Urine NEGATIVE (NEGATIVE); Benzodiazepine,Urine NEGATIVE (NEGATIVE); Cocaine,Urine NEGATIVE (NEGATIVE); Methadone,Urine NEGATIVE (NEGATIVE); Opiate,Urine NEGATIVE (NEGATIVE); PCP,Urine NEGATIVE (NEGATIVE); THC,Urine POSITIVE (NEGATIVE)
--- NOTE | 2021-09-16 20:23 | XRAY ---
Indication: Left flank pain. History stone. Multiple contiguous axial images obtained through the abdomen and pelvis without contrast. Comparison: September 11, 2020 Study is diffusely degraded by mild respiration artifact throughout. Lung bases demonstrates minimal right middle lobe fibrosis/scarring and tiny right lower lobe calcified granuloma. No infiltrate or effusion. Heart not enlarged. Noncontrasted stomach and bowel loops appear nonobstructed. Normal appendix. New 2.9 cm right ovary cyst. Again previous cholecystectomy. New nonobstructing left renal punctate calculus. No free fluid/air. Remaining liver, pancreas, spleen, adrenal glands, kidneys, ureters, bladder, uterus, and aorta are unremarkable for noncontrast exam. Osseous structures intact. No ventral or inguinal hernias. Impression: 1. Respiration artifact. 2. New nonobstructing left renal punctate calculus. 3. New 2.9 cm right ovary cyst. 4. Remaining CT abdomen/pelvis without contrast exam is grossly negative.
[2021-09-16 20:44] LABS: Amphetamine,Urine POSITIVE (NEGATIVE)
[2021-09-16 21:08] VITALS: PULSE 62; O2SAT 99
== END 2021-09-16 21:08 | disposition home or self-care (01) ==
LOC: EEVIPCON 17:12 → ED 17:12
DX: N83.201 Unspecified ovarian cyst, right side (principal); R10.84 Generalized abdominal pain; R11.2 Nausea with vomiting, unspecified; Z72.0 Tobacco use
CPT/HCPCS: 36000; 36415; 74176; 80053; 80307; 81015; 82150; 83605; 83690; 84703; 85025; 96360; 96374; 96375; 99284; G0480; 96376; J1885; J2405